=== PATIENT | female | born 1970 | race Caucasian/White ===

== ENCOUNTER → 2021-05-13 | Outpatient (CLI) | payer BC, SELFPAY | END | disposition home or self-care (01) | LOC: LABSPEC 09:56 | PROVIDERS: PCP Student in an Organized Health Care Education/Training Program; Referring Provider Physician Assistant Surgical; Visit Provider Physician Assistant Surgical | DX: U07.1 COVID-19 (principal) | CPT/HCPCS: 87635; U0005; U0003 ==

== ENCOUNTER 2021-07-08 08:21 | Emergency (ER) | payer BC, SELFPAY ==
[2021-07-08 08:22] VITALS: BP 147/75; PULSE 85; RESP 18; TEMP 36.8; O2SAT 96; BMI 48.6
--- NOTE | 2021-07-08 08:42 | EKG12_ITS ---
Test Reason : PALPS Blood Pressure : / mmHG Vent. Rate : 071 BPM Atrial Rate : 071 BPM P-R Int : 162 ms QRS Dur : 098 ms QT Int : 416 ms P-R-T Axes : 044 -09 033 degrees QTc Int : 452 ms Normal sinus rhythm Normal ECG Confirmed by DAGMAR MOSER, CODY ([id number]), editorial director JOLIE ACEVES ([id number]) on 07/11/2021 9:39:37 AM Referred By: SALO Confirmed By:CODY LEAVITT MD
--- NOTE | 2021-07-08 08:42 | RAD_ITS ---
STUDY: X-RAY CHEST REASON FOR EXAM: Female, 51 years old. Palpitations TECHNIQUE: Single AP portable view of the chest. COMPARISON: None. FINDINGS: EKG electrodes are seen. The lungs are clear and expanded. There is no demonstrated pleural abnormality. Normal size heart. Normal mediastinum and august. Normal visualized pulmonary arteries. Normal visualized aortic arch and descending thoracic aorta. Normal visualized thoracic spine. Normal visualized ribs, clavicles, and shoulders. There is no demonstrated abnormality of the visualized soft tissue structures of the upper abdomen. RAD/Chest 1 View (Portable) IMPRESSION: Normal x-ray examination of the chest. Electronically Signed: Deni Moran MD at 9:33 EST , Service support ,
--- NOTE | 2021-07-08 08:44 | EDS_ITS ---
HPI History of Present Illness Chief Complaint: Palpitations Narrative Narrative: 50-year-old female presenting with palpitations. She states she was at work and started to feel like her heart was racing. She did not measure her heart rate. She states that she felt lightheaded and that her legs were weak however she did not fall. Her coworker told her her face was red. Patient denies any chest pain. She is not recently had fever, chills, cough. She had COVID-19 in April and states the second time she had it and it was a mild case. No history of DVT/PE but these. Patient does admit that she has been excessively thirsty recently. She has no history of diabetes. Patient does have a history of PTSD. She started taking hydroxyzine yesterday for anxiety and this helps when she takes it. She denies any cardiac or pulmonary history. [facility] Medical History Asthma Back problem Chronic neck pain Chronic thoracic back pain Hearing problem History of ectopic Intertrigo Macromastia Seasonal allergies Shoulder pain Smoker Tinnitus of both ears Home Medications albuterol sulfate 90 mcg/actuation aerosol inhaler 2 puff INHALATION Q6H PRN 01/13/20 [History Last Taken Unknown] nicotine 14 mg/24 hr daily transdermal patch 1 patch TRANSDERMAL Q24H #28 ea 01/13/20 [Rx Last Taken Unknown] triamcinolone acetonide 0.5 % topical cream 1 applic TOPICAL BID #15 g 01/13/20 [Rx Last Taken Unknown] hydroxyzine HCl 50 mg tablet 50 mg PO .prn tab 02/15/21 [History Last Taken Unknown] tizanidine 4 mg capsule 4 mg PO .prn cap 02/15/21 [History Last Taken Unknown] ondansetron HCl 4 mg tablet 4 mg PO Q6H PRN #20 tab 05/13/21 [Rx Last Taken Unknown] Allergy/AdvReac Type Severity Reaction Status Date / Time No Known Allergies Allergy Unverified 07/08/21 08:25 Family History Father Cancer Lung cancer Mother Hypertension Hyperlipemia defect Ovarian cancer Brother Asthma Sister Depression History of psychiatric care Social History Smoking Status: Current every day smoker tobacco type: cigarettes Tobacco: How many years used: 36 alcohol intake: current alcohol intake frequency: holidays/special occasions only substance use type: does not use what type of physical activity do you participate in: walking additional social history: Does Not Take Aspirin Does Take Ibuprofen as needed ROS ROS ED Constitutional Constitutional ED: Denies chills or fever(s) Eyes Eyes: Denies blurry vision or diplopia ENT ENT ED: Denies rhinorrhea or sore throat Cardiovascular Cardiovascular: Reports palpitations and racing heartbeat; Denies chest pain Respiratory/Chest Respiratory/Chest: Denies cough or dyspnea Gastrointestinal Gastrointestinal: Denies abdominal pain, constipation, diarrhea, nausea or vomiting Genitourinary Genitourinary ED: Denies dysuria or hematuria Musculoskeletal Musculoskeletal: Denies arthralgias or myalgias Integumentary Denies rash Neurologic Neurologic: Denies headache(s) or paresthesias Psychiatric Psychiatric: Reports anxiety; Denies suicidal ideation or suicidal thoughts EXAM Physical Exam Const Vital Signs: 07/08/21 08:22 07/08/21 08:36 07/08/21 08:45 Temperature 98.2 F Temperature Source Temporal Pulse Rate 85 Respiratory Rate 18 Respiratory Effort Short of Breath Respiratory Pattern Normal Blood Pressure 147/75 H Blood Pressure Mean 99 Pulse Ox 96 96 Oxygen Delivery Method Room Air Room Air 07/08/21 09:44 Temperature Temperature Source Pulse Rate 70 Respiratory Rate 16 Respiratory Effort Respiratory Pattern Blood Pressure 145/89 H Blood Pressure Mean 107 Pulse Ox 98 Oxygen Delivery Method Room Air Positive well nourished General Appearance ED: NAD; Negative for pallor HEENT Reports normocephalic, head/scalp atraumatic and moist mucous membranes Eyes PERRL and EOMs intact bilaterally Neck no lymphadenopathy and supple Chest Wall inspection of chest normal and palpation of chest normal Resp normal respiratory effort and clear to auscultation bilaterally Auscultation: Negative for rales, rhonchi or wheezes Cardio regular rate and regular rhythm GI normal to inspection, nondistended, normoactive bowel sounds and non-distended Auscultation: normoactive bowel sounds Palpation: soft Narrative: Deferred Extremity normal to inspection General Extremety ED: Negative for edema or tenderness General Extremity: Negative for edema Neuro oriented x3 and CN's II-XII intact bilaterally Sensorium / Orientation: alert Motor Exam: strength 5/5 throughout Psych mental status grossly normal Attitude: No agitated Skin no rashes or lesions noted and no wounds General Skin Exam: Negative for jaundice or pallor MDM MDM MDM Narrative Medical decision making narrative: 51-year-old female presenting with palpitations and a feeling of near syncope. She does have a history of PTSD. She is recently started on hydroxyzine for this. She took it and it is improving her symptoms currently. She does not have any chest pain. She is not short of breath. No fever, chills. She is already had COVID-19 twice. She felt otherwise healthy. She is eating and drinking normally. Patient denies any cardiac or pulmonary history. There is a record of her having asthma. She is not wheezing. EKG on my interpretation shows a normal sinus rhythm with a ventricular to 71 bpm without sign of ischemic change. Chest x-ray my interpretation shows no acute cardiopulmonary process. The radiologist does agree. CBC and BMP are unremarkable. High-sensitivity troponin is 4. Again the patient is not having chest pain or pressure or dyspnea. I do not believe s he is a delta troponin. I feel she is safe for discharge home. Patient is amenable to this. Impression: 1. Palpitations 2. History of PTSD Lab Data Attestation: I reviewed the patient's lab results. Labs: Laboratory Results - last 24 hr 07/08/21 07/08/21 08:50 08:50 WBC 4.5 RBC 4.17 L Hgb 13.0 Hct 39.7 MCV 95.2 MCH 31.2 MCHC 32.7 RDW Std Deviation 44.6 H RDW Coeff of Laura 12.6 Plt Count 237 MPV 9.7 Immature Gran % (Auto) 0.200 Neut % (Auto) 62.3 Lymph % (Auto) 24.7 [place] % (Auto) 11.5 H Eos % (Auto) 0.9 Baso % (Auto) 0.4 Absolute Neuts (auto) 2.8 Absolute Lymphs (auto) 1.10 Nucleated RBC % 0 Sodium 142 Potassium 3.8 Chloride 110 H Carbon Dioxide 26.0 Anion Gap 6 BUN 11 Creatinine 0.70 Estim Creat Clear Calc 76.88 Est GFR (MDRD) Af Amer 112 Est GFR (MDRD) Non-Af 93 BUN/Creatinine Ratio 15.7 Glucose 100 Calcium 8.8 Troponin I High Sens 4 Radiography Diagnostic Testing: Clinical Impression(s) from Imaging Studies Chest X-Ray 07/08/21 08:42 IMPRESSION: Normal x-ray examination of the chest. Electronically Signed: Deni Moran MD at 9:33 EST , Service support , Discharge Plan Triage Chief Complaint: Palpitations ED Provider: Jonas Chiu Dx/Rx/DC Orders Instructions: ED Palpitations, ED Panic Attack Prescriptions: No Action albuterol sulfate [ProAir HFA] 90 mcg/actuation HFA aerosol inhaler 2 puff INHALATION Q6H PRN (Reason: Shortness Of Breath) RF: 0 nicotine 14 mg/24 hr patch 24 hour 1 patch transdermal Q24H Qty: 28 RF: 1 triamcinolone acetonide 0.5 % cream 1 applic TOPICAL BID Qty: 15 RF: 1 hydroxyzine HCl 50 mg tablet 50 mg PO .prn RF: 0 tizanidine 4 mg capsule 4 mg PO .prn RF: 0 ondansetron HCl [Zofran] 4 mg tablet 4 mg PO Q6H PRN (Reason: nausea and vomiting) Qty: 20 RF: 0 Primary Care Provider: Audra Clemons Referrals: Audra Clemons MD [Primary Care Provider] - Disposition Disposition: Home, Self Care
[2021-07-08 08:45] VITALS: O2SAT 96
[2021-07-08 09:03] LABS: Absolute Neutrophil Count 2.8 X10^3/uL (2.0-7.7); Basophil# 0.02 X10^3/uL; Basophil% 0.4 % (0-1); Eosinophil# 0.04 X10^3/uL; Eosinophils% 0.9 % (0-5); Hematocrit 39.7 % (37-47); Lymphocyte % 24.7 % (19-41); Mean Corp Hgb Conc 32.7 g/dL (32-36); Mean Corpuscular Hgb 31.2 pg (27.0-32.0); Mean Corpuscular Volume 95.2 fL (81-99); Mean Platelet Vol. 9.7 fl (6.2-12.0); Monocyte# 0.51 X10^3/uL; Monocyte% 11.5 % (0-10); NRBC Flagged by Analyzer 0 % (0-5); Neutrophil # 2.77 X10^3/uL (2.7-7.7); Neutrophil % 62.3 % (47-70); Platelet Count 237 K/mm3 (150-450); RBC Distribution Width CV 12.6 % (11.6-14.6); RBC Distribution Width SD 44.6 fl (35.1-43.9); Red Blood Count 4.17 M/mm3 (4.2-5.4); White Blood Count 4.5 K/mm3 (4.4-11.0)
[2021-07-08 09:15] LABS: Anion Gap 6 (5-15); BUN 11 mg/dL (7-18); BUN/Creat Ratio 15.7 RATIO (10-20); Calcium,Total 8.8 mg/dL (8.5-10.1); Chloride 110 mmol/L (98-107); EST Glomerular Filtration Rate 93 mL/min (>60); Est Glom Filt Rate - Afr Amer 112 mL/min (>60); Estimated Creatinine Clearance 76.88 ml/min; Glucose 100 mg/dL (74-106); Potassium 3.8 mmol/L (3.5-5.1); Sodium Level 142 mmol/L (136-145); Troponin-I HS 4 pg/mL (3.0-54.0)
[2021-07-08 09:44] VITALS: BP 145/89; PULSE 70; RESP 16; O2SAT 98
[2021-07-08 10:20] VITALS: BP 110/62; PULSE 71; RESP 18; O2SAT 96
== END 2021-07-08 10:21 | disposition home or self-care (01) ==
PROVIDERS: Emergency Provider Student in an Organized Health Care Education/Training Program; PCP Student in an Organized Health Care Education/Training Program
DX: R00.2 Palpitations (principal); F43.10 Post-traumatic stress disorder, unspecified; X58.XXXA Exposure to other specified factors, initial encounter; Y93.9 Activity, unspecified; Y92.9 Unspecified place or not applicable; Y99.9 Unspecified external cause status; J45.909 Unspecified asthma, uncomplicated; F41.9 Anxiety disorder, unspecified; Z79.899 Other long term (current) drug therapy; F17.210 Nicotine dependence, cigarettes, uncomplicated; Z86.16 Personal history of COVID-19
CPT/HCPCS: 71045; 80048; 84484; 85025; 93005; 99285; A4216

== ENCOUNTER 2021-09-23 13:16 | Emergency (ER) | payer BC, SELFPAY ==
[2021-09-23 13:17] VITALS: BP 131/56; PULSE 85; RESP 18; TEMP 36.4; O2SAT 97; BMI 47.8
--- NOTE | 2021-09-23 16:06 | VDLE_ITS ---
Reason For Study: Pain and Swelling Procedure LEFT This is a venous duplex using B-mode, color GSV is normal. flow and spectral Doppler. CFV is compressible, spontaneous, phasic, Exam performed portable in ED. competent, and demonstrates normal A preliminary report was called and/or faxed augmentation. to Dr. Justice. FV is compressible, spontaneous, phasic, competent and demonstrates normal augmentation. POP V is compressible, spontaneous, phasic, competent and demonstrates normal augmentation. T/P Trunk is compressible. PTV is compressible. LT PerV is compressible. VL/Venous Duplex US, Unilateral Interpretation Summary There is no evidence of left lower extremity deep vein thrombosis. Left great s aphenous vein appears patent and compressible segmentally. Ordering Physician: Gato Justice Referring Physician: Audra Clemons Performed By: Lashanda Turner, MARCO ANTONIO, RVT
--- NOTE | 2021-09-23 16:08 | EX.ED.DYSGE1 ---
HPI History of Present Illness Chief Complaint: Cellulitis Informant: patient Onset/Context/Timing Onset: Today and Yesterday Context: Gradual Onset Timing: Continuous Current Severity: Mild Maximum Severity: Mild Narrative Narrative: 51-year-old female with past medical history of PTSD currently only on meds as needed for that. States yesterday she started swelling and discomfort to her left lower leg and worsened today. Pain. Chills. Redness. No history of DVT or prior cellulitis. No recent travel, surgery or immobilization. Prior similar symptoms: No Recent Illness/Hospitalization: No PFSH PFSH Medical History Asthma Back problem Chronic neck pain Chronic thoracic back pain Encounter for screening for COVID-19 Hearing problem History of ectopic Intertrigo Macromastia Seasonal allergies Shoulder pain Smoker Tinnitus of both ears URI (upper respiratory infection) Home Medications albuterol sulfate 90 mcg/actuation aerosol inhaler 2 puff INHALATION Q6H PRN 01/13/20 [History Last Taken Unknown] nicotine 14 mg/24 hr daily transdermal patch 1 patch TRANSDERMAL Q24H #28 ea 01/13/20 [Rx Last Taken Unknown] triamcinolone acetonide 0.5 % topical cream 1 applic TOPICAL BID #15 g 01/13/20 [Rx Last Taken Unknown] hydroxyzine HCl 50 mg tablet 50 mg PO .prn tab 02/15/21 [History Last Taken Unknown] tizanidine 4 mg capsule 4 mg PO .prn cap 02/15/21 [History Last Taken Unknown] ondansetron HCl 4 mg tablet 4 mg PO Q6H PRN #20 tab 05/13/21 [Rx Last Taken Unknown] cephalexin 500 mg PO Q6H 10 Days #40 cap 09/23/21 [Rx Last Taken Unknown] Allergy/AdvReac Type Severity Reaction Status Date / Time No Known Allergies Allergy Unverified 09/23/21 13:18 Family History Father Cancer Lung cancer Mother Hypertension Hyperlipemia defect Ovarian cancer Brother Asthma Sister Depression History of psychiatric care Social History Smoking Status: Current every day smoker tobacco type: cigarettes Tobacco: How many years used: 36 alcohol intake: current alcohol intake frequency: holidays/special occasions only substance use type: does not use what type of physical activity do you participate in: walking additional social history: Does Not Take Aspirin Does Take Ibuprofen as needed ROS ROS ED ROS Narrative Chills. Review of Systems ROS Unobtainable: Denies due to encephalopathy Constitutional Constitutional ED: Reports chills and subjective; Denies fever(s) Eyes Eyes: Denies change in vision ENT ENT ED: Denies ear pain, rhinorrhea or sore throat Cardiovascular Cardiovascular: Denies chest pain Respiratory/Chest Respiratory/Chest: Denies cough or dyspnea Gastrointestinal Gastrointestinal: Reports diarrhea and nausea; Denies abdominal pain or vomiting Genitourinary Genitourinary ED: Denies dysuria Musculoskeletal Musculoskeletal: Denies myalgias Integumentary Reports rash Neurologic Neurologic: Denies headache(s) Psychiatric Psychiatric: Denies depression Endocrine Endocrinology: Denies polyuria Allergic/Immunologic Allergic/Immunologic ED: Denies urticaria EXAM Physical Exam Narrative Exam Narrative: Female no acute distress. Vital signs stable afebrile. H EENT exam unremarkable. Neck nontender. Lungs clear to auscultation. Heart regular rhythm rate about 85 no murmur. Abdomen obese but soft nontender normal bowel sounds no peritoneal signs. Moving all 4 extremities. Neurovascular intact. Her left lower leg primarily the anterior york is red, tender in the left lower leg is swollen compared to the right. There is no calf tenderness or cords bilaterally. Dorsi plantarflexion is intact. Exam is consistent most likely with a cellulitis. Const Vital Signs: 09/23/21 13:17 09/23/21 17:16 Temperature 97.5 F L 98.7 F Temperature Source Temporal Oral Pulse Rate 85 70 Respiratory Rate 18 16 Blood Pressure 131/56 H 149/69 H Blood Pressure Mean 81 95 Pulse Ox 97 96 Oxygen Delivery Method Room Air Room Air Positive well nourished, well developed and obese; Negative for cachectic, contractures or unkempt General Appearance ED: well developed and NAD; Negative for unkempt, cachectic, contractures, cyanotic or diaphoretic Nutritional Appearance: obese; Negative for cachectic HEENT Reports moist mucous membranes Negative for trauma or tenderness Eyes PERRL and EOMs intact bilaterally Neck no lymphadenopathy, supple and no JVD General: Negative for tenderness Chest Wall palpation of chest normal Resp normal respiratory effort and clear to auscultation bilaterally Effort and Inspection: Negative for retractions or pain with movement Auscultation: Negative for rales, rhonchi, wheezes or diminished lung sounds Cardio regular rate, regular rhythm, S1 normal heart sound, S2 normal heart sound and no murmurs GI normal to inspection, nondistended, normoactive bowel sounds, non-tender, non-distended and no masses Inspection: Negative for abdominal distention Auscultation: normoactive bowel sounds Palpation: soft; Negative for tender, guarding or rebound tenderness present Back/Spine no CVA tenderness General Back: Negative for CVA tenderness Cervical Spine: Negative for cervical spine tenderness Thoracic Spine / Upper Back: Negative for thoracic spinal tenderness or paraspinal muscle tenderness Extremity normal to inspection Extremity Narrative: Extremities are normal except left lower extremity has appears to be cellulitis on the anterior york, warmth, tenderness and swelling compared to the right. Both calves are nontender. There is no cords. Upper and lower extremities are neurovascular intact. Normal motor strength. Normal range of motion. General Extremety ED: Yes edema and tenderness General Extremity: edema Neuro oriented x3 Sensorium / Orientation: alert; Negative for orientation impaired, lethargic or stuporous Motor Exam: strength 5/5 throughout Psych mental status grossly normal Appearance: Negative for unkempt Attitude: No agitated Mood & Affect: Negative for depressed or tearful Skin No no rashes or lesions noted and no wounds Skin Narrative: Left lower extremity cellulitis. MDM MDM MDM Narrative Medical decision making narrative: 51-year-old female with 1 to 2-day history of left lower leg swelling and redness. Clinically appears to be a skin cellulitis. She be treated with IV Unasyn. Screening labs and an ultrasound of her leg will be obtained. Repeat exam patient is doing well at 6:50 PM. She will be discharged home on Keflex 500 mg 4 times a day for 10 days. Follow-up with primary care physician return if worse. Lab Data Attestation: I reviewed the patient's lab results. Lab results narrative: CBC normal white count 9. H&H of 14 and 42. Electrolytes unremarkable gap of 4. Normal BUN and creatinine. Glucose 99. Venous study of the left lower extremity shows no DVT. Patient be treated as a cellulitis. Labs: Laboratory Results - last 24 hr 09/23/21 09/23/21 16:10 16:10 WBC 9.8 RBC 4.56 Hgb 14.2 Hct 42.7 MCV 93.6 MCH 31.1 MCHC 33.3 RDW Std Deviation 43.0 RDW Coeff of Laura 12.4 Plt Count 203 MPV 10.1 Immature Gran % (Auto) 0.600 Neut % (Auto) 76.3 H Lymph % (Auto) 11.9 L [place] % (Auto) 11.0 H Eos % (Auto) 0.0 Baso % (Auto) 0.2 Absolute Neuts (auto) 7.5 Absolute Lymphs (auto) 1.17 Nucleated RBC % 0 Sodium 136 Potassium 4.1 Chloride 104 Carbon Dioxide 28.0 Anion Gap 4 L BUN 8 Creatinine 0.85 Estim Creat Clear Calc 63.32 Est GFR (MDRD) Af Amer 90 Est GFR (MDRD) Non-Af 74 BUN/Creatinine Ratio 9.4 L Glucose 99 Calcium 9.2 Discharge Plan Triage Chief Complaint: Cellulitis ED Provider: Gato Justice Dx/Rx/DC Orders Clinical Impression: Cellulitis of left anterior lower leg Instructions: ED Cellulitis Prescriptions: New cephalexin 500 mg capsule 500 mg PO Q6H 10 Days Qty: 40 RF: 0 No Action albuterol sulfate [ProAir HFA] 90 mcg/actuation HFA aerosol inhaler 2 puff INHALATION Q6H PRN (Reason: Shortness Of Breath) RF: 0 nicotine 14 mg/24 hr patch 24 hour 1 patch transdermal Q24H Qty: 28 RF: 1 triamcinolone acetonide 0.5 % cream 1 applic TOPICAL BID Qty: 15 RF: 1 hydroxyzine HCl 50 mg tablet 50 mg PO .prn RF: 0 tizanidine 4 mg capsule 4 mg PO .prn RF: 0 ondansetron HCl [Zofran] 4 mg tablet 4 mg PO Q6H PRN (Reason: nausea and vomiting) Qty: 20 RF: 0 Primary Care Provider: Audra Clemons Referrals: Audra Clemons MD [Primary Care Provider] - 3-5 Days Activity Restrictions/Additional Instructions: Your left leg has a soft tissue infection called cellulitis. There is no blood clot. Your labs today look good. You will be treated with antibiotic called Keflex. 1 pill 4 times a day for the next 10 days. Follow-up with your primary care provider to ensure this is improving. Return if worse. Disposition Disposition: Home, Self Care
[2021-09-23 17:16] VITALS: BP 149/69; PULSE 70; RESP 16; TEMP 37.1; O2SAT 96
[2021-09-23 17:33] LABS: Absolute Lymphocyte Count 1.17 X10^3/uL (0.83-4.51); Absolute Neutrophil Count 7.5 X10^3/uL (2.0-7.7); Basophil# 0.02 X10^3/uL; Basophil% 0.2 % (0-1); Hematocrit 42.7 % (37-47); Hemoglobin 14.2 g/dL (12.0-15.0); Lymphocyte # 1.17 X10^3/ul (0.83-4.51); Lymphocyte % 11.9 % (19-41); Mean Corp Hgb Conc 33.3 g/dL (32-36); Mean Corpuscular Hgb 31.1 pg (27.0-32.0); Mean Corpuscular Volume 93.6 fL (81-99); Mean Platelet Vol. 10.1 fl (6.2-12.0); Monocyte# 1.08 X10^3/uL; NRBC Flagged by Analyzer 0 % (0-5); Neutrophil # 7.48 X10^3/uL (2.7-7.7); Neutrophil % 76.3 % (47-70); Platelet Count 203 K/mm3 (150-450); RBC Distribution Width CV 12.4 % (11.6-14.6); Red Blood Count 4.56 M/mm3 (4.2-5.4); White Blood Count 9.8 K/mm3 (4.4-11.0)
[2021-09-23 17:44] LABS: Anion Gap 4 (5-15); BUN 8 mg/dL (7-18); BUN/Creat Ratio 9.4 RATIO (10-20); Calcium,Total 9.2 mg/dL (8.5-10.1); Chloride 104 mmol/L (98-107); Creatinine, Serum 0.85 mg/dL (0.55-1.02); EST Glomerular Filtration Rate 74 mL/min (>60); Est Glom Filt Rate - Afr Amer 90 mL/min (>60); Estimated Creatinine Clearance 63.32 ml/min; Glucose 99 mg/dL (74-106); Potassium 4.1 mmol/L (3.5-5.1); Sodium Level 136 mmol/L (136-145)
== END 2021-09-23 19:03 | disposition home or self-care (01) ==
PROVIDERS: Emergency Provider Emergency Medicine; PCP Student in an Organized Health Care Education/Training Program; Visit Provider Emergency Medicine
DX: L03.116 Cellulitis of left lower limb (principal); R68.83 Chills (without fever); J45.909 Unspecified asthma, uncomplicated; R19.7 Diarrhea, unspecified; R11.0 Nausea; E66.9 Obesity, unspecified; F17.210 Nicotine dependence, cigarettes, uncomplicated; Z79.899 Other long term (current) drug therapy
CPT/HCPCS: 80048; 85025; 93971; 96365; 99283; J7050; A4216; J0295

== ENCOUNTER 2022-05-26 14:30 | Outpatient (RCR) | payer OTHER, BC, SELFPAY ==
--- NOTE | 2022-04-24 07:45 | HP.PTEVAL_ITS ---
Patient's Visit Information JAMMIE MCINTOSH is a 51 year old F referred to Physical Therapy by TOMAS Beard with a diagnosis of R Rc strain. Date of Evaluation: 04/24/22 Physical Therapist: David Lin, ROSY, OCS, CSCS - Visit Plan Frequency: 3x /Week Duration: 4-6 Weeks Plan: 3x/week for 2-4 weeks for. 1. progression of function and strengthening of Posture and RC. 2. AA-AROM R shoulder. 3. 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 Then she heard a pop and heand started to go numb. This was 11 days ago. Now Clinic said strained R shoulder/ possible RCT. Ordered PT. Did x- rays which were fine. Pain over last couple days was not bad as she has been laying off housework. Shooting pain into finger tips if she reaches. Neck cracks alot and did prior to this injury, no real neck pain. Sleep is OK. Employed at [employer] and is still full duty. Can work with arms in front of body but get increased pain. If has to move arms alot then it hurts and makes arm hard to move. Has to manage job duties due to shoulder pain. Activities at home are OK but cannot carry laundry to basement easily due to pain.Dressing not a big problem anymore in shoulder. Bra was has been easier now then first couple days. Hobbies include reading whcih she can do. R handed. Overall 50% and not constant pain anymore. - Pain R shoulder Pain Intensity (Out of 10): 1 Pain Intensity Range: 0, 4 - Objective Posture is Fw head and scap minimally. Tender to aplpation in R supraspinatus insertion only. cervical aROM is full and painfree. UE AROM is full and symmetrical but pain with end range ext rotation, IR and flexion on R also a painful arc at 90 on R. reflexes 2/3 bi and tri. sensation WNl to gross light touch B. Strength is 4/5 throughout B UE except R ext rotation shoulder which is 4- and painful, flexion and abduction ar epainful. - drop arm. - ext rotation lag. - sulcus. - apprehension - Balance/Special Test Scores Quick DASH Score: 54.5450 - Goals Goal 1:: Full UE AROM without pain Goal Time Frame: 4-6 Weeks Goal 2:: patient feel pain 99% better and transient 1/10 at worst Goal Time Frame: 4-6 Weeks Goal 3:: Patient able to do all duties at work without problem/pain Goal Time Frame: 4-6 Weeks Goal 4:: I appropr management of condition Goal Time Frame: 4-6 Weeks - Rehabilitation Potential Physical Therapy Diagnosis: R supraspinatus strain. Rehabilitation Potential: Good - Anticipated Interventions Patient/Client Instruction: Educate patient on: Condition, Plan of Care For the Purpose of:: To decrease pain, To improve nutrient delivery to tissue, To improve muscle performance and motor function, To increase tolerance to activity/condition/position Therapeutic Exercise to Include: Strength training, Postural training, Passive ROM, Active ROM For the Purpose of:: To decrease pain, To decrease swelling/inflammation, To improve nutrient delivery to tissue, To improve muscle performance and motor function, To increase tolerance to activity/condition/position, To improve ability of physical actions for home/community/work/leisure Manual Therapy Techniques to Include: Mobilization, Passive ROM, Soft tissue mobilization For the Purpose of:: To decrease pain, To increase ROM TENS: Yes Cryotherapy (ice pack, ice massage): Yes For the Purpose of:: To decrease pain, To decrease swelling/inflammation Thank you for the opportunity to evaluate your patient. For Medicare and Medicare HMO plans, please review the plan of care and approve it. It will need to be FAXED BACK to us at [phone] for Medicare purposes. For Medicare only, by signing this I certify the plan of care. Please let me know if there are questions or concerns regarding this plan of care. Physician Signature: Date:
--- NOTE | 2022-05-17 14:53 | HP.PTREVAL ---
TOMAS Beard, It has been my pleasure to treat JAMMIE MCINTOSH over the last 9 visits for R RTC strain. Please see the progress note below for an update on the physical therapy plan of care! Subjective: Much better last session. 2/10 pain today and feeling good. Work is OK and is on light duty. Avodiing carrying laundry basket to basement at home. will be ready to be done when this round of therapy is up. Objective/Function: AROM WFL B UE, strength [id number]. No c/o increase pain with exercises or work. Plan Plan: finish up next week of therapy and then d/c if doing well, progress strength Balance/Gait/Functional tests - Balance/Special Test Scores Quick DASH Score: 54.5450 Goals Goal 1:: Full UE AROM without pain Goal Time Frame: 4-6 Weeks Goal Progress: Goal Met Goal 2:: patient feel pain 99% better and transient 1/10 at worst Goal Time Frame: 4-6 Weeks Goal Progress: 90 Goal 3:: Patient able to do all duties at work without problem/pain Goal Time Frame: 4-6 Weeks Goal Progress: yes light duty Goal 4:: I appropr management of condition Goal Time Frame: 4-6 Weeks Goal Progress: Goal Met Anticipated Interventions Patient/Client Instruction: Educate patient on: Condition, Plan of Care For the Purpose of:: To decrease pain, To improve nutrient delivery to tissue, To improve muscle performance and motor function, To increase tolerance to activity/condition/position Therapeutic Exercise to Include: Strength training, Postural training, Passive ROM, Active ROM For the Purpose of:: To decrease pain, To decrease swelling/inflammation, To improve nutrient delivery to tissue, To improve muscle performance and motor function, To increase tolerance to activity/condition/position, To improve ability of physical actions for home/community/work/leisure Manual Therapy Techniques to Include: Mobilization, Passive ROM, Soft tissue mobilization For the Purpose of:: To decrease pain, To increase ROM TENS: Yes Cryotherapy (ice pack, ice massage): Yes For the Purpose of:: To decrease pain, To decrease swelling/inflammation Please do not hesitate to contact me at [phone] by phone or if you have questions or concerns regarding this new plan of care! Sincerely, David Lin, DPT, OCS, CSCS
--- NOTE | 2022-05-19 15:09 | HP.PTREVAL ---
TOMAS Beard, It has been my pleasure to treat JAMMIE MCINTOSH over the last 10 visits for R RTC strain. Please see the progress note below for an update on the physical therapy plan of care! Subjective: I feel good. Saw doctor yesterday and will f/u again on 05/29. He wants all visit kept and needs 2 more. Doing her old belt at work and is a little weak with new activity. Life is pretty normal at home. Objective/Function: Full aROM B UE without pain or hesitation. Symmetrical RC and elevation strength without pain. - empty can. - drop arm. - HK and neer. Doing well overall. Plan Plan: strengthen 2 more visits per doctor then d/c to HEP. No f/u necessary with PT unless something changes. Balance/Gait/Functional tests - Balance/Special Test Scores Quick DASH Score: 11.3625 Goals Goal 1:: Full UE AROM without pain Goal Time Frame: 4-6 Weeks Goal Progress: Goal Met Goal 2:: patient feel pain 99% better and transient 1/10 at worst Goal Time Frame: 4-6 Weeks Goal Progress: 95% Goal 3:: Patient able to do all duties at work without problem/pain Goal Time Frame: 4-6 Weeks Goal Progress: restricted til end Octobe Goal 4:: I appropr management of condition Goal Time Frame: 4-6 Weeks Goal Progress: Goal Met Anticipated Interventions Patient/Client Instruction: Educate patient on: Condition, Plan of Care For the Purpose of:: To decrease pain, To improve nutrient delivery to tissue, To improve muscle performance and motor function, To increase tolerance to activity/condition/position Therapeutic Exercise to Include: Strength training, Postural training, Passive ROM, Active ROM For the Purpose of:: To decrease pain, To decrease swelling/inflammation, To improve nutrient delivery to tissue, To improve muscle performance and motor function, To increase tolerance to activity/condition/position, To improve ability of physical actions for home/community/work/leisure Manual Therapy Techniques to Include: Mobilization, Passive ROM, Soft tissue mobilization For the Purpose of:: To decrease pain, To increase ROM TENS: Yes Cryotherapy (ice pack, ice massage): Yes For the Purpose of:: To decrease pain, To decrease swelling/inflammation Please do not hesitate to contact me at [phone] by phone or if you have questions or concerns regarding this new plan of care! Sincerely, David Lin, DPT, OCS, CSCS
--- NOTE | 2022-07-10 08:16 | HP.PT.NRP ---
JAMMIE MCINTOSH was seen in my office for initial evaluation on 04/24/22. The following Plan of Care was established for this patient: Initial Frequency: 3x /Week Initial Duration: 4-6 Weeks Patient/Client Instruction: Educate patient on: Condition, Plan of Care For the Purpose of:: To decrease pain, To improve nutrient delivery to tissue, To improve muscle performance and motor function, To increase tolerance to activity/condition/position Therapeutic Exercise to Include: Strength training, Postural training, Passive ROM, Active ROM For the Purpose of:: To decrease pain, To decrease swelling/inflammation, To improve nutrient delivery to tissue, To improve muscle performance and motor function, To increase tolerance to activity/condition/position, To improve ability of physical actions for home/community/work/leisure Manual Therapy Techniques to Include: Mobilization, Passive ROM, Soft tissue mobilization For the Purpose of:: To decrease pain, To increase ROM TENS: Yes Cryotherapy (ice pack, ice massage): Yes For the Purpose of:: To decrease pain, To decrease swelling/inflammation This patient was last seen in our office 05/26/22. Pertinent comments regarding their Physical therapy will appear below: Pt seen 12 visits of POC and was 95% better. She worked to I with her HEP and will not require further therapy after her last visit. I will discontinue her at this time. At this point I will be discontinuing this patient from physical therapy. I would be happy to see this patient again in the future if found appropriate by the physician. Thank you! David Lin, DPT, OCS, CSCS Balance/Gait/Functional tests - Balance/Special Test Scores Quick DASH Score: 11.3625
== END 2022-05-26 19:00 | disposition home or self-care (01) ==
LOC: PT 14:30
PROVIDERS: PCP Student in an Organized Health Care Education/Training Program; Referring Provider Physician Assistant; Visit Provider Physician Assistant
DX: X58.XXXD Exposure to other specified factors, subsequent encounter; S46.011D Strain of muscle(s) and tendon(s) of the rotator cuff of right shoulder, subsequent encounter
CPT/HCPCS: 97014; 97110; 97161; 97164; 97530; G0283

== ENCOUNTER → 2024-04-22 | Outpatient (CLI) | payer OTHER, BC, SELFPAY ==
--- NOTE | 2024-04-22 09:44 | RAD_ITS ---
STUDY: X-RAY - RIGHT SHOULDER REASON FOR EXAM: Female, 53 years old. Right shoulder strain. TECHNIQUE: 4 view(s) of the shoulder. COMPARISON: Comparison is made with prior study dated April 13, 2022. FINDINGS: Normal glenohumeral articulation. There is degenerative arthrosis of the acromioclavicular joint without inferior osseous spur formation. Normal acromion. Normal humeral head and visualized proximal humerus. The soft tissue structures are unremarkable. Normal visualized pulmonary apex. RAD/Shoulder min 2 Views IMPRESSION: Degenerative arthrosis of the right acromioclavicular joint. Electronically Signed: Deni Moran MD at 10:47 EDT ,
== END | disposition home or self-care (01) ==
PROVIDERS: PCP Student in an Organized Health Care Education/Training Program; Referring Provider Physician Assistant; Visit Provider Physician Assistant
DX: S46.911A Strain of unspecified muscle, fascia and tendon at shoulder and upper arm level, right arm, initial encounter (principal); X58.XXXA Exposure to other specified factors, initial encounter
CPT/HCPCS: 73030

== ENCOUNTER 2024-06-20 07:30 | Outpatient (RCR) | payer OTHER, SELFPAY ==
--- NOTE | 2024-05-20 08:30 | HP.PTEVAL_ITS ---
Patient's Visit Information Visit Information Visit Information: JAMMIE MCINTOSH is a 54 year old F referred to Physical Therapy by TOMAS Beard with a diagnosis of STRAIN OF MUSCLE AND TENDON OF ROTATOR CUFF ,STRAIN SHOULDER. Date of Evaluation: 05/20/24 Physical Therapist: Vu Sanchez, PT, Cert MDT, OCS Visit Plan Frequency: 3x /Week Duration: 4-6 Weeks Plan: PT INTERVENTIONS RTX/SCAPULAR STRENGTHENING ,POSTURAL EX'S ,DELTOID STRENGTHENING AND MODALITIES PRN Subjective Subjective: This 54 y/o female presents to physical therapy with right shoulder pain. Patient was lifting drum of trash caused immediate pain right shoulder on 04/19/24 at work. Seen Urgent care following week ,did x-rays -. Prednisone pack and recommended PT. Pain located anterior shoulder. Patient aggravating factors lifting ,[place] activities , reaching affecting job demands and housework tasks. Alleviating factors rest. Denies paresthesia/tingling -. Patient is on light duty 8 hrs. Patient sleeping okay. Patient condition affects QOL and function/job demands . RTD next week Patient goals to have no pain. 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 Pain Right Shoulder: Pain Intensity (Out of 10): 5 Pain Intensity Range: N/A Objective Objective: POSTURE: rounded shoulders head forward PALAPTION: unremarkable NEURO: denies paresthesia/tingling AROM: shoulder flexion 160 degrees ,abduction 150 degrees ,ER 90 ,IR T10 MMT: ( peak force) infraspinatus 11.4 ,supraspinatus 7.4 ,deltoid 12.2 Special Tests R Shoulder Empty Can - SS: Positive R Shoulder Belly Press - SupScap: Negative R Shoulder Neer - Impingement: Positive R Shoulder [place] - Impingement: Positive R Shoulder [place] - SLAP/A-C: Negative R Shoulder AC Resisted - AC: Negative Balance/Special Test Scores Quick DASH Score: 70.0000 Goals Goal 1:: Patient to be I with HEP for shoulder Goal Time Frame: 4-6 Weeks Goal 2:: Patient to improve peak force RTC/deltoid byb 5-10# to improve function. Goal Time Frame: 4-6 Weeks Goal 3:: Patient to improve quick dash by 5 points to improve QOL and function Goal Time Frame: 4-6 Weeks Goal 4:: Patient to demonstrate 50% improvement with less pain and improved function Goal Time Frame: 4-6 Weeks Rehabilitation Potential Physical Therapy Diagnosis: This patient strain right shoulder with pain of RTC with pain with [place] activities and job demands thus benefit from skilled PT Rehabilitation Potential: Good Anticipated Interventions Patient/Client Instruction: Educate patient on: Condition and Plan of Care For the Purpose of:: To decrease pain, To increase ROM, To improve muscle performance and motor function, To improve ability to perform ADL's, To increase tolerance to activity/condition/position, To improve ability of physical actions for home/community/work/leisure, To improve health of tissue, To decrease soft tissue restriction and To increase flexibility/ROM Therapeutic Exercise to Include: Strength training, Active ROM and Scapular Strength/Stabilization Comment: RTC For the Purpose of:: To decrease pain, To increase ROM, To improve muscle performance and motor function, To improve ability to perform ADL's, To increase tolerance to activity/condition/position, To improve ability of physical actions for home/community/work/leisure, To improve health of tissue, To decrease soft tissue restriction, To increase flexibility/ROM and To improve tolerance to ADL's TENS: Yes IF ES: Yes Cryotherapy (ice pack, ice massage): Yes Thermo therapy (hot pack): Yes Ultrasound (thermal/non thermal): Yes For the Purpose of:: To decrease pain, To increase ROM, To improve health of tissue and To decrease soft tissue restriction Text: Thank you for the opportunity to evaluate your patient. For Medicare and Medicare HMO plans, please review the plan of care and approve it. It will need to be FAXED BACK to us at [phone] for Medicare purposes. For Medicare only, by signing this I certify the plan of care. Please let me know if there are questions or concerns regarding this plan of care. Physician Signature: Date:_
--- NOTE | 2024-06-20 07:59 | HP.PTDCSUM ---
Discharge Summary D/C summary: It has been my pleasure to treat JAMMIE MCINTOSH referred by TOMAS Beard, with the diagnosis of STRAIN OF MUSCLE AND TENDON OF ROTATOR CUFF ,STRAIN SHOULDER for a total of 11 visit(s). Discharge Date: Please see the following information for a summary of their discharge status. Subjective Subjective: Doing good ABLE to do ADLS and housework /yardwork Pain Right Shoulder: Pain Intensity (Out of 10): 0 Overall Improvement % Improvement: 100 Objective Objective/Function: POSTURE: rounded shoulders head forward PALAPTION: unremarkable NEURO: denies paresthesia/tingling AROM: shoulder flexion 160 degrees ,abduction 150 degrees ,ER 90 ,IR T10 MMT: ( peak force) infraspinatus 17.4 ,supraspinatus 16,4 ,deltoid 17.2 Goals Goal 1:: Patient to be I with HEP for shoulder Goal Progress: Goal Met Goal 2:: Patient to improve peak force RTC/deltoid byb 5-10# to improve function. Goal Progress: Goal Met Goal 3:: Patient to improve quick dash by 5 points to improve QOL and function Goal Progress: Goal Met Goal 4:: Patient to demonstrate 50% improvement with less pain and improved function Goal Progress: Goal Met Plan Plan: D/C D/C Information d/c sentence: If there are questions or concerns regarding this patient's physical therapy, please feel free to call me at [phone]. Thank you for the referral of this patient. Sincerely, Vu Sanchez, PT, Cert MDT, OCS Balance/Gait/Functional tests Balance/Special Test Scores Quick DASH Score: 70.0000 Improvement % Improvement: 100
== END 2024-06-20 13:23 | disposition home or self-care (01) ==
LOC: PT 07:30
PROVIDERS: PCP Student in an Organized Health Care Education/Training Program; Referring Provider Physician Assistant; Visit Provider Physician Assistant
DX: S46.911D Strain of unspecified muscle, fascia and tendon at shoulder and upper arm level, right arm, subsequent encounter (principal); S46.011D Strain of muscle(s) and tendon(s) of the rotator cuff of right shoulder, subsequent encounter
CPT/HCPCS: 97110; 97162; 97530